=== PATIENT | female | born 1990 | race Caucasian/White ===

== ENCOUNTER 2017-05-18 16:30 | Emergency (ER) | payer SELFPAY ==
--- NOTE | ~2017-05-18 | ER ---
PATIENT'S NAME: MELODIE [facility]ARC[facility]A [facility] AGE: 26 Y [address] ROOM: [place] [id number] LOCATION: [facility] ADMIT DATE: 05/18/2017 ER/Outpatient Report DISCHARGE DATE: 05/18/2017 FAMILY PHYSICIAN: PHYSICIAN, NO ATTENDING PHYSICIAN: Kirby Holden TIME OF EVALUATION: 1640 hours. HISTORY OF PRESENT ILLNESS: The patient is a 26-year-old female from [place], [place]. She said on Thursday she was seen in the [place] emergency Room with a rash. She states that they did lab work on her and told that was probably not scabies or chicken pox. The provider evidently was not sure exactly what the rash was cause from, anyway they put her on Benadryl and prednisone. The patient has a history of type 2 diabetes and her blood sugar was running over 300 at that time, so they did start her back on her metformin. ALLERGIES: SHE IS ALLERGIC TO KEFLEX. CURRENT MEDICATIONS: Include: Metformin, Benadryl, prednisone and Tylenol, she is on a decreasing dose of steroids. MEDICAL HISTORY: 1. Asthma. 2. Gou-tlmelsp-zavltnlcw diabetes. SURGERIES: 1. Discectomy. 2. T and A. SOCIAL HISTORY: Does smoke marijuana occasionally. Alcohol occasionally. 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 REVIEW OF SYSTEMS: GENERAL: She says she had not felt good over the weekend with some body aches. HEENT: No complaints of any recent sore throat. RESPIRATORY: Denies any shortness of breath or cough. CARDIOVASCULAR: No chest pain. GASTROINTESTINAL: Denies nausea or vomiting. SKIN: Includes a rash which is asymptomatic as far as any itching or weeping. She does deny being out in the sun. PATIENT'S NAME: MELODIE GARCÍA [facility] AGE: 26 Y [address] ROOM: [place] [address] LOCATION: [facility] ADMIT DATE: 05/18/2017 ER/Outpatient Report DISCHARGE DATE: 05/18/2017 FAMILY PHYSICIAN: PHYSICIAN, NO ATTENDING PHYSICIAN: Kirby Holden PHYSICAL EXAMINATION: VITAL SIGNS: Blood pressure was 150/99, her pulse was 101, respiratory rate 16, temperature is 99, her O2 saturations 97%. GENERAL APPEARANCE: Appears somewhat anxious but no obvious distress. HEENT: Sclerae were clear. Oral membranes were moist. LUNGS: Sound clear. SKIN: Somewhat of a generalize rash mostly on her chest and arms. There was no presence of any herald patch that I could find. LABORATORY DATA: Her Accu-Chek was just over 300. ASSESSMENT: 1. Rash, possible pityriasis rosea. 2. Diabetes mellitus type 2. 3. History of asthma. PLAN: Since it has been two days, recommend that she continue the Benadryl, continue the prednisone for the next couple days. We did give her information on pityriasis rosea and recommend that if things do not improve in the next couple days and she has concerns to follow up with her provider. 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 FAISAL CH FOR MD ZOEY BOSS/sohan /[id number] d: t: 05/18/17 2335, OUTPATIENT REPORT
[~2017-05-18 16:30] MED LIST: AUGMENTIN500 MG; FEOSOL325 MG PO; FOLIC ACID 40400 MCG PO; GLUCOPHAGE500 MG; HUMULIN 70100 UNIT/1 SUB-Q; HUMULIN 70100 UNIT/M SUB-Q; MOTRIN800 MG PO; PERCOCET 5-3251 EACH PO; PRENATAL 1+1)(P1 TAB PO; TUMS200 MG PO
== END 2017-05-18 17:27 | disposition disaster alternative care site (69) ==
LOC: GMED 16:30
DX: R21 Rash and other nonspecific skin eruption (principal); E11.9 Type 2 diabetes mellitus without complications; J45.909 Unspecified asthma, uncomplicated; F12.10 Cannabis abuse, uncomplicated; Z98.890 Other specified postprocedural states; Z88.1 Allergy status to other antibiotic agents; Z79.84 Long term (current) use of oral hypoglycemic drugs; Z79.899 Other long term (current) drug therapy